=== PATIENT | female | born 1980 | race African-American/Black ===

== ENCOUNTER 2017-05-17 15:14 | Emergency (ER) | payer MEDICAID ==
[~2017-05-17] VITALS: Ht 162.6 cm; Wt 86.1 kg
[2017-05-17 15:19] VITALS: BP 120/77; PULSE 98; RESP 16; TEMP 98; O2SAT 97
[2017-05-17] MEDS ORDERED: NEUR800T PO (16:27)
[2017-05-17] MEDS ORDERED: OXYC1TAB63 PO (16:27)
--- NOTE | 2017-05-17 16:48 | PD ---
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 Patient reports that she had a tummy tuck performed in the [place] 1 month ago and suffered a complication of a seroma. She had this seroma drained the past Tuesday and had a JOSE drain placed to remove any residual fluid. Patient reports that she had a CT of her abdomen and pelvis performed after the JOSE was placed which showed resolution of the seroma. Patient reports that her doctor wanted her to keep the JOSE drain in place to remove any residual fluids. Patient reports that since last week, she has had less than 50 cc of fluid drained from her JOSE drain per day. Patient reports that she is here visiting for the holidays and wanted to make sure that her JOSE drain wasn't clogged. Patient denies any fevers or chills, she denies any abdominal pain. Patient denies any nausea or vomiting. Patient reports no other complications. Patient here for JOSE drain evaluation. PFSH Past Medical History Medical other: Yes (AVN) Respiratory: Yes (asthma) ?: Not LMP: 04/17/17 Past Surgical History Other Surgery: Yes (CYST REMOVED FROM ABD) Social History Alcohol Use: No Tobacco Use: Yes Substance Use: No Allergies-Medications (Allergen,Severity, Reaction): Coded Allergies: No Known Allergies (Unverified , 05/17/17) Reported Meds & Prescriptions Reported Meds & Active Scripts Active Reported Oxycodone-Acetaminophen 5-325 mg Tab 1 Tab PO Q4H PRN Neurontin (Gabapentin) 800 Mg Tab 1,600 Mg PO TID Review of Systems General / Constitutional: No: Fever Eyes: No: Visual changes HENT: No: Headaches Cardiovascular: No: Chest Pain or Discomfort Respiratory: No: Shortness of Breath Gastrointestinal: No: Abdominal Pain Genitourinary: No: Dysuria Musculoskeletal: No: Pain Skin: No Rash Neurologic: No: Weakness Psychiatric: No: Depression Endocrine: No: Polydipsia Hematologic/Lymphatic: No: Easy Bruising Physical Exam Narrative GENERAL: NAD SKIN: Focused skin assessment warm/dry. HEAD: Atraumatic. Normocephalic. EYES: Pupils equal and round. No scleral icterus. No injection or drainage. ENT: No nasal bleeding or discharge. Mucous membranes pink and moist. NECK: Trachea midline. No JVD. CARDIOVASCULAR: Regular rate and rhythm. No murmur appreciated. RESPIRATORY: No accessory muscle use. Clear to auscultation. Breath sounds equal bilaterally. GASTROINTESTINAL: Abdomen soft, non-tender, nondistended. Hepatic and splenic margins not palpable. Patient with serosanguineous fluid in JOSE drain, there are no clots, no signs of infection, abdomen is soft, nontender, no signs of infection. MUSCULOSKELETAL: No obvious deformities. No clubbing. No cyanosis. No edema. NEUROLOGICAL: Awake and alert. No obvious cranial nerve deficits. Motor grossly within normal limits. Normal speech. PSYCHIATRIC: Appropriate mood and affect; insight and judgment normal. Data Data Last Documented VS Vital Signs Date Time Temp Pulse Resp B/P (MAP) Pulse Ox O2 Delivery O2 Flow Rate FiO2 05/17/17 15:19 98.0 98 16 120/77 (91) 97 [facility] Medical Decision Making Medical Screen Exam Complete: Yes Emergency Medical Condition: Yes Medical Record Reviewed: Yes Interpretation(s) Vital Signs Date Time Temp Pulse Resp B/P (MAP) Pulse Ox O2 Delivery O2 Flow Rate FiO2 05/17/17 15:19 98.0 98 16 120/77 (91) 97 Differential Diagnosis JOSE Drain malfunction Narrative Course 36-year-old female who presents to emergency room with possible JOSE drain malfunction. Patient did have a seroma status post tummy tuck one month ago. She had this certainly drained last week on Tuesday and had a JOSE tube placed to remove residual fluids. Patient reports that over the past week, she has had less drainage from her JOSE tube and wanted to make sure everything was okay. JOSE tube shows serosanguineous fluid with no signs of infection. Abdomen is soft, nontender, nondistended, no peritoneal signs. Patient with most likely completion of drainage of seroma. I discussed possibilities of the CT scan of her abdomen to evaluate if seroma is still present which patient refuses at this time. Patient reports that she'll follow-up with her primary care doctor, she will return to the emergency room as needed. Signs and symptoms of infection were discussed with patient in detail. Patient understands when to return to the emergency. Diagnosis Primary Impression: Healing wound Patient Instructions: General Instructions Additional Instructions: Please follow up with your primary care doctor for removal of your JOSE drain Return to ER as needed or if symptoms worsen or persist Disposition: 01 DISCHARGE HOME Condition: Stable Chrystal Simpson DO May 17, 2017 16:48
== END 2017-05-17 16:56 | disposition home or self-care (01) ==
LOC: PHED 15:14
DX: Z43.4 Encounter for attention to other artificial openings of digestive tract (principal); J45.909 Unspecified asthma, uncomplicated; Z72.0 Tobacco use
CPT/HCPCS: 99282

== ENCOUNTER 2017-05-20 01:41 | Observation (INO) | payer MEDICAID ==
[~2017-05-20] VITALS: Ht 165.1 cm; Wt 72.0 kg
[~2017-05-20 01:41] MED LIST: NEUR800T PO; OXYC1TAB63 PO
[2017-05-20 01:43] VITALS: BP 136/76; PULSE 105; RESP 16; TEMP 98.9; O2SAT 100
--- NOTE | 2017-05-20 02:16 | PD ---
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 Her JOSE drain has had very little drainage over the last 24 hours of approximately 20 ml. The JOSE drain was placed 2 weeks ago and since the placement she has had less than 25 mL per day. She had a tummy tuck done on in the [facility] and at that time the JOSE drain was placed. On 04/10 the JOSE drain was removed. She return back home to [place] after having the surgery done. The patient reports that the drain was replaced 2 weeks ago in her home state of [place]. She is now currently on vacation in [place]. She reports that she was seen in the emergency department on May 17 for evaluation of her JOSE drain site as she reports that she was told to follow-up in the emergency department in [place]. He was recommended at that time that she have further evaluation done by CT scan, however the patient refused. At that time, she did not have any pain. She presented with concern about the decreased drainage. Review of systems otherwise, the patient denies having any known recent fevers, cough, congestion, neck pain, chest pain, shortness of breath, vomiting, diarrhea, urinary symptoms, or neurologic symptoms. She reports that she has been moving her bowels regularly. She last moved her bowels today. PFSH Past Medical History Narrative Medical The patient's past medical history is significant for asthma, history of avascular necrosis. Respiratory: Yes (asthma) Past Surgical History Narrative Surgical The patient's past surgical history is significant for having a cyst removed from her abdomen, history of abdominoplasty. Other Surgery: Yes (CYST REMOVED FROM ABD) Social History Alcohol Use: No Tobacco Use: Yes Substance Use: No Allergies-Medications (Allergen,Severity, Reaction): Coded Allergies: No Known Allergies (Unverified , 05/20/17) Reported Meds & Prescriptions Reported Meds & Active Scripts Active Reported Oxycodone-Acetaminophen 5-325 mg Tab 1 Tab PO Q4H PRN Neurontin (Gabapentin) 800 Mg Tab 1,600 Mg PO TID Review of Systems Except as stated in HPI: all other systems reviewed are Neg General / Constitutional: No: Fever Eyes: No: Visual changes HENT: No: Headaches Cardiovascular: No: Chest Pain or Discomfort Respiratory: No: Shortness of Breath Gastrointestinal: Positive: Abdominal Pain, No: Nausea, Vomiting, Diarrhea, Changes in Bowel Habits, Loss of Appetite Genitourinary: No: Dysuria Musculoskeletal: No: Pain Skin: No Rash Neurologic: No: Weakness Psychiatric: No: Depression Endocrine: No: Polydipsia Hematologic/Lymphatic: No: Easy Bruising Physical Exam Narrative General: The patient is a well-developed well-nourished female in no acute distress. Head and Neck exam: Head is normocephalic atraumatic. Eyes: EOMI, pupils are equal round and reactive to light. Nose: Midline septum with pink mucous membranes Mouth: Dentition unremarkable. Moist mucus membranes. Posterior oropharynx is not erythematous. No tonsillar hypertrophy. Uvula midline. Airway patent. Neck: No palpable lymphadenopathy. No nuchal rigidity. No thyromegaly. Cardiovascular: Regular rate and rhythm without murmurs, gallops, or rubs. Lungs: Clear to auscultation bilaterally. No wheezes, rhonchi, or rales. Abdomen: Soft, with a JOSE drain in place in the left side of her abdomen that appears to be in good repair with a serous sanguinous drainage noted. She has approximately 20 mL noted in the reservoir. She has no surrounding erythema, edema, or warmth on palpation, however she does have tenderness reported on palpation around the JOSE drain site on the left side of the abdomen. No other tenderness on palpation of the other quadrants of the abdomen. No guarding, rebound, or rigidity. Normal bowel sounds are audible. No tenderness on palpation of McBurney's point. Negative Castro's sign. Extremities: No clubbing, cyanosis, or edema. 2+ pulses in all 4 extremities. No calf tenderness on palpation. Back: No spinous process tenderness to palpation. No costovertebral angle tenderness to palpation. Neurologic Exam: Grossly nonfocal. Skin Exam: No rash noted. Intact skin that is warm and dry. Data Data Last Documented VS Vital Signs Date Time Temp Pulse Resp B/P (MAP) Pulse Ox O2 Delivery O2 Flow Rate FiO2 05/20/17 02:16 Room Air 05/20/17 01:43 98.9 105 16 136/76 (96) 100 Orders Orders Complete Blood Count With Diff (05/20/17 02:26) Comprehensive Metabolic Panel (05/20/17 02:26) C-Reactive Protein (Crp) (05/20/17 02:26) Lipase (05/20/17 02:26) Ct Abd/Pel W Iv Contrast(Rout) (05/20/17 02:26) Iv Access Insert/Monitor (05/20/17 02:26) Ecg Monitoring (05/20/17 02:26) Oximetry (05/20/17 02:26) Ed Urine Pregnancytest Poc (05/20/17 02:26) Sodium Chlor 0.9% 1000 Ml Inj (Ns 1000 M (05/20/17 03:15) Ketorolac Inj (Toradol Inj) (05/20/17 03:15) Iohexol 350 Inj (Omnipaque 350 Inj) (05/20/17 04:15) Piperacil-Tazo 3.375 Gm Premix (Zosyn 3. (05/20/17 04:45) Admit Order (Ed Use Only) (05/20/17 04:54) Labs Laboratory Tests Test 05/20/17 02:41 White Blood Count 12.5 TH/MM3 Red Blood Count 3.37 MIL/MM3 Hemoglobin 9.9 GM/DL Hematocrit 29.3 % Mean Corpuscular Volume 86.8 FL Mean Corpuscular Hemoglobin 29.4 PG Mean Corpuscular Hemoglobin Concent 33.9 % Red Cell Distribution Width 15.7 % Platelet Count 453 TH/MM3 Mean Platelet Volume 6.4 FL Neutrophils (%) (Auto) 58.5 % Lymphocytes (%) (Auto) 26.6 % Monocytes (%) (Auto) 8.5 % Eosinophils (%) (Auto) 5.2 % Basophils (%) (Auto) 1.2 % Neutrophils # (Auto) 7.3 TH/MM3 Lymphocytes # (Auto) 3.3 TH/MM3 Monocytes # (Auto) 1.1 TH/MM3 Eosinophils # (Auto) 0.6 TH/MM3 Basophils # (Auto) 0.2 TH/MM3 CBC Comment DIFF FINAL Differential Comment Blood Urea Nitrogen 13 MG/DL Creatinine 0.54 MG/DL Random Glucose 86 MG/DL Total Protein 6.8 GM/DL Albumin 3.2 GM/DL Calcium Level 8.2 MG/DL Alkaline Phosphatase 68 U/L Aspartate Amino Transf (AST/SGOT) 14 U/L Alanine Aminotransferase (ALT/SGPT) 17 U/L Total Bilirubin 0.2 MG/DL Sodium Level 140 MEQ/L Potassium Level 3.9 MEQ/L Chloride Level 107 MEQ/L Carbon Dioxide Level 22.3 MEQ/L Anion Gap 11 MEQ/L Estimat Glomerular Filtration Rate 155 ML/MIN C-Reactive Protein 2.07 MG/DL Lipase 74 U/L MDM Medical Decision Making Medical Screen Exam Complete: Yes Emergency Medical Condition: Yes Medical Record Reviewed: Yes Interpretation(s) Last Impressions Abdomen/Pelvis CT 05/20/17 0226 Signed Impressions: Service Date/Time: Saturday, May 20, 2017 03:57 - CONCLUSION: 1. Postsurgical findings with lentiform fluid collection along the superficial surface of the anterior abdominal wall musculature. Surgical drain is in place within the fluid collection. Adjacent inflammatory changes seen in the superficial soft tissues. 2. No other acute findings identified in the abdomen and pelvis. Romel Valle MD Differential Diagnosis Recurrent seroma, versus postop infection, versus pain related to JOSE drain migration, versus plugged JOSE drain Narrative Course During the course of the patients emergency department visit, the patients history, examination, and differential diagnosis were reviewed with the patient. The patient was placed on a cardiac care unit nurse with oximetry and frequent blood pressure monitoring. The patient had IV access obtained and blood work sent for analysis. The patient will have CT scan of the abdomen and pelvis done. The patients laboratory studies were reviewed and remarkable for a white count of 12.5, hemoglobin 9.9, platelets 453 with 8.5 monocytes. Given the patient's abdominal pain and elevated white blood cell count, records from the other facility that she was evaluated at had her JOES drain replaced in [place] will be obtained. She reports that she was in [facility] in [place], [place]. CMP is remarkable for a calcium of 8.2, AST 14, C-reactive protein 2.07, lipase 74 Radiology studies were reviewed and remarkable for a CT scan of the abdomen and pelvis that shows post surgical findings with a lentiform fluid collection along the superficial surface of the anterior abdominal wall musculature. Surgical drain is in place within the fluid collection, adjacent inflammatory changes are seen in the soft tissues. No other acute findings in the abdomen and pelvis. Given the patient's new abdominal pain since yesterday, and her elevated white blood cell count with continued fluid collection and inflammatory changes in the abdomen records will be obtained from the facility that recently replaced the JOSE drain in [place]. In the meantime, the patient was given Zosyn 3.375 g IV. The patient will be admitted for observation and consideration of replacement of her JOSE drain by interventional radiology. The patient's case was discussed with Dr. Lee who did agree to admit the patient for continued evaluation and treatment. Unfortunately, after further discussion with the patient, the patient reports that she has the only vehicle for her family and her sister is currently watching her 3 kids. She reports that her sister needs to go to work and no other person can watch her kids, therefore she cannot be admitted. I explained to the patient my concern regarding an infectious process, however the patient reports that she cannot stay. The patient will be signing out AGAINST MEDICAL ADVICE. AMA: The risks of leaving against medical advice without further evaluation treatment were discussed with the patient. These risks include sepsis or related to progressive abdominal wall infection postop. The patient indicated understanding of these risks and appeared to have the capacity to make this decision. Physician Communication Physician Communication The patient's case including history, pertinent physical examination findings, and laboratory studies were discussed with Dr. Lee. It was agreed that the patient would be admitted to the [facility] service. Diagnosis Primary Impression: Abdominal pain Qualified Codes: R10.12 - Left upper quadrant pain Additional Impression: Leukocytosis Qualified Codes: D72.829 - Elevated white blood cell count, unspecified Admitting Information Admitting Physician Requests: Kristine Bell MD May 20, 2017 02:16
[2017-05-20 02:48] LABS: AUTOMATED NEUTROPHIL # 7.3 TH/MM3 (1.8-7.7); BASOPHIL # 0.2 TH/MM3 (0-0.2); BASOPHIL % 1.2 % (0.0-2.0); EOSINOPHIL # 0.6 TH/MM3 (0-0.4); EOSINOPHIL % 5.2 % (0.0-4.0); HEMATOCRIT 29.3 % (35.0-46.0); HEMOGLOBIN 9.9 GM/DL (11.6-15.3); LYMPH % 26.6 % (9.0-44.0); LYMPHOCYTE # 3.3 TH/MM3 (1.0-4.8); MEAN CELL VOLUME 86.8 FL (80.0-100.0); MEAN CORPUSCULAR HEMOGLOBIN 29.4 PG (27.0-34.0); MEAN CORPUSCULAR HGB CONC 33.9 % (32.0-36.0); MEAN PLATELET VOLUME 6.4 FL (7.0-11.0); MONO % 8.5 % (0.0-8.0); MONOCYTE # 1.1 TH/MM3 (0-0.9); NEUT % 58.5 % (16.0-70.0); PLATELET COUNT 453 TH/MM3 (150-450); RED BLOOD COUNT 3.37 MIL/MM3 (4.00-5.30); RED CELL DISTRIBUTION WIDTH 15.7 % (11.6-17.2); WHITE BLOOD COUNT 12.5 TH/MM3 (4.0-11.0)
[2017-05-20] MEDS ORDERED: KETOROLAC TROMETHAMINE 30 MG/ML (IVP) VIAL IV PUSH ONE (03:15)
[2017-05-20] MEDS ORDERED: SODIUM CHLOR 0.9% 1000 ML INJ 1,000 ML IV ONE (03:15)
[2017-05-20 03:37] LABS: ALBUMIN 3.2 GM/DL (3.4-5.0); ALT (GPT) 17 U/L (10-53); AST (GOT) 14 U/L (15-37); BICARBONATE 22.3 MEQ/L (21.0-32.0); BLOOD UREA NITROGEN 13 MG/DL (7-18); C-REACTIVE PROTEIN 2.07 MG/DL (0.00-0.30); CALCIUM 8.2 MG/DL (8.5-10.1); CHLORIDE 107 MEQ/L (98-107); CREATININE 0.54 MG/DL (0.50-1.00); GLOMERULAR FILTRATION RATE 155 ML/MIN (>89); GLUCOSE,RANDOM 86 MG/DL (74-106); LIPASE 74 U/L (73-393); SODIUM (NA) 140 MEQ/L (136-145)
[2017-05-20 03:39] LABS: ALKALINE PHOSPHATASE 68 U/L (45-117); TOTAL BILIRUBIN ADULT 0.2 MG/DL (0.2-1.0); TOTAL PROTEIN 6.8 GM/DL (6.4-8.2)
[2017-05-20] MEDS ORDERED: IOHEXOL 350 MG/ML 10 ML VIAL (for RAD DIAG) IVCONTRAST ONE (04:15)
--- NOTE | 2017-05-20 04:40 | RADRPT ---
EXAM DATE/TIME: 05/20/2017 03:57 [facility] COMPARISON: No previous studies available for comparison. INDICATIONS : Abdominal pain. JOSE drain post adominoplasty. IV CONTRAST: 100 cc Omnipaque 350 (iohexol) IV ORAL CONTRAST: No oral contrast ingested. RADIATION DOSE: 6.64 CTDIvol (mGy) MEDICAL HISTORY : None SURGICAL HISTORY : Abdominoplasty. Bilateral hip replacement. ENCOUNTER: Initial ACUITY: 1 day PAIN SCALE: 0/10 LOCATION: abdomen TECHNIQUE: Volumetric scanning of the abdomen and pelvis was performed. Using automated exposure control and ad justment of the mA and/or kV according to patient size, radiation dose was kept as low as reasonably achievable to obtain optimal diagnostic quality images. DICOM format image data is available electro nically for review and comparison. FINDINGS: LOWER LUNGS: The visualized lower lungs are clear. LIVER: Homogeneous density without lesion. There is no dilation of the biliary tree. No calcified gallston es. SPLEEN: Normal size without lesion. PANCREAS: Within normal limits. KIDNEYS: Normal in size and shape. There is no mass, stone or hydronephrosis. ADRENAL GLANDS: Within normal limits. VASCULAR: There is no aortic aneurysm. BOWEL/MESENTERY: No evidence of bowel dilatation. No free air or free fluid. Appendix within normal limits. ABDOMINAL WALL: Lentiform fluid collection is seen in the anterior abdominal wall with surgical drain in place within the fluid collection. The collection measures 13.1 x 1.7 cm in axial dimensions. Adjacent superficia l soft tissue edema as well as edema in the region of the rectus abdominous muscle. RETROPERITONEUM: There is no lymphadenopathy. BLADDER: No wall thickening or mass. REPRODUCTIVE: Within normal limits. INGUINAL: There is no lymphadenopathy or hernia. MUSCULOSKELETAL: Bilateral total hip prostheses. CONCLUSION: 1. Postsurgical findings with lentiform fluid collection along the superficial surface of the anterio r abdominal wall musculature. Surgical drain is in place within the fluid collection. Adjacent inflam matory changes seen in the superficial soft tissues. 2. No other acute findings identified in the abdomen and pelvis. Romel Valle MD on May 20, 2017 at 4:31 Board Certified Radiologist. This report was verified electronically.
[2017-05-20] MEDS ORDERED: PIPERACIL-TAZO 3.375 GM PREMIX 50 ML IV ONE (04:45)
[2017-05-20] MEDS ORDERED: SODIUM CHLOR 0.9% 1000 ML INJ 1,000 ML IV SCH (04:59)
[2017-05-20] MEDS ORDERED: SODIUM CHLORIDE 0.9% FLUSH 10 ML FLUSH IV FLUSH PRN (05:00)
[2017-05-20] MEDS ORDERED: SENNOSIDES 8.6 MG TAB PO PRN (05:00)
[2017-05-20] MEDS ORDERED: MORPHINE SULFATE 2 MG/ML INJ IV PUSH PRN (05:00)
[2017-05-20] MEDS ORDERED: MAGNESIUM HYDROXIDE SUSP 30 ML CUP PO PRN (05:00)
[2017-05-20] MEDS ORDERED: BISACODYL 10 MG SUPP RECTAL PRN (05:00)
[2017-05-20] MEDS ORDERED: ACETAMINOPHEN/HYDROcodone 325 MG/5 MG TAB PO PRN (05:00)
[2017-05-20] MEDS ORDERED: ACETAMINOPHEN 325 MG TAB PO PRN (05:00)
[2017-05-20] MEDS ORDERED: LACTULOSE SYRUP 20 GM/30 ML CUP PO PRN (05:00)
[2017-05-20] MEDS ORDERED: ONDANSETRON HCL 4 MG/2 ML VIAL IVP PRN (05:00)
--- NOTE | 2017-05-20 05:21 | HHI.HP ---
HPI Service [facility] Primary Care Physician Unknown Admission Diagnosis Abdominal pain, leukocytosis, h/o abdominoplasty with JOSE drain Diagnoses: (1) Malfunction of device Diagnosis: Principal (2) Leukocytosis Diagnosis: Principal (3) Abdominal pain Diagnosis: Principal Travel History International Travel<30 Days: No Contact w/Intl Traveler <30 Da: No Traveled to Known Affected Are: No History of Present Illness This is a 36-year-old female with a PMH of Asthma and Avascular Necrosis s/p Bilateral Hip Prosthesis who presented to the ER w/ complaints of abdominal pain. Reports symptoms began approx 2wks ago, now progressively worse. Pain is constant, pressure like, 01/30. Recent abdominoplasty in [facility] on 04/01/17, states JOSE drain placed at that time and later removed on 04/10/17. She went back home to [place] following surgery and developed abdominal pain, seen in ER in [place] and told she had seroma, JOSE Drain replaced. Currently in [place] on vacation, now w/ worsening abdominal pain and suspected JOSE Drain malfunction as only w/ 20cc output. Denies nausea, vomiting or diarrhea. No fever, chills. On arrival, BP 120/77, HR 98, O2 sat 97% on RA, Afebrile. WBC 12.5. Chemistry essentially unremarkable. CT Abd/Pelvis w/ postsurgical findings with lentiform fluid collection along the superficial surface of the anterior abdominal wall musculature, surgical drain is in place within the fluid collection, adjacent inflammatory changes. S/p Zosyn in ER. Review of Systems Except as stated in HPI: all other systems reviewed are Neg ROS: 14 point review of systems otherwise negative. Past Family Social History Past Medical History PMH: Asthma and Avascular Necrosis s/p Bilateral Hip Prosthesis Past Surgical History PAST SURGICAL HISTORY: Abdominoplasty, Bilateral Hip Prosthesis Allergies: Coded Allergies: No Known Allergies (Unverified , 05/20/17) Family History PAST FAMILY HISTORY: Reviewed. No h/o DM or CAD Social History PAST SOCIAL HISTORY: Negative for alcohol or drugs. Positive for tobacco. Physical Exam Vital Signs Vital Signs Date Time Temp Pulse Resp B/P (MAP) Pulse Ox O2 Delivery O2 Flow Rate FiO2 05/20/17 02:16 Room Air 05/20/17 01:43 98.9 105 16 136/76 (96) 100 Room Air Physical Exam PE: GENERAL: Young female in no acute distress. HEENT: PERRLA, EOMI. No scleral icterus or conjunctival pallor. No lid lag or facial droop. CARDIOVASCULAR: Regular rate and rhythm. No obvious murmurs to auscultation. No chest tenderness to palpation. RESPIRATORY: No obvious rhonchi or wheezing. Clear to auscultation. Breath sounds equal bilaterally. GASTROINTESTINAL: Abdomen soft, non-tender, nondistended. BS normal. JOSE Drain in place, no significant erythema/edema, mild tenderness to palpation MUSCULOSKELETAL: Extremities without clubbing, cyanosis, or edema. No obvious deformities. NEUROLOGICAL: Awake, alert and oriented x4. No focal neurologic deficits. Moving both upper and lower extremities spontaneously. Laboratory Laboratory Tests Test 05/20/17 02:41 White Blood Count 12.5 Red Blood Count 3.37 Hemoglobin 9.9 Hematocrit 29.3 Mean Corpuscular Volume 86.8 Mean Corpuscular Hemoglobin 29.4 Mean Corpuscular Hemoglobin Concent 33.9 Red Cell Distribution Width 15.7 Platelet Count 453 Mean Platelet Volume 6.4 Neutrophils (%) (Auto) 58.5 Lymphocytes (%) (Auto) 26.6 Monocytes (%) (Auto) 8.5 Eosinophils (%) (Auto) 5.2 Basophils (%) (Auto) 1.2 Neutrophils # (Auto) 7.3 Lymphocytes # (Auto) 3.3 Monocytes # (Auto) 1.1 Eosinophils # (Auto) 0.6 Basophils # (Auto) 0.2 CBC Comment DIFF FINAL Differential Comment Blood Urea Nitrogen 13 Creatinine 0.54 Random Glucose 86 Total Protein 6.8 Albumin 3.2 Calcium Level 8.2 Alkaline Phosphatase 68 Aspartate Amino Transf (AST/SGOT) 14 Alanine Aminotransferase (ALT/SGPT) 17 Total Bilirubin 0.2 Sodium Level 140 Potassium Level 3.9 Chloride Level 107 Carbon Dioxide Level 22.3 Anion Gap 11 Estimat Glomerular Filtration Rate 155 C-Reactive Protein 2.07 Lipase 74 Result Diagram: 05/20/1724005/20/17240 Caprini VTE Risk Assessment Caprini VTE Risk Assessment: No/Low Risk (score <= 1) Caprini Risk Assessment Model Point Value = 1 Point Value = 2 Point Value = 3 Point Value = 5 Age 41-60 Minor surgery BMI > 25 kg/m2 Swollen legs Varicose veins or History of unexplained or recurrent spontaneous Oral contraceptives or hormone replacement Sepsis (< 1 month) Serious lung disease, including pneumonia (< 1 month) Abnormal pulmonary function Acute myocardial infarction Congestive heart failure (< 1 month) History of inflammatory bowel disease Medical patient at bed rest Age 61-74 Arthroscopic surgery Major open surgery (> 45 min) Laparoscopic surgery (> 45 min) Malignancy Confined to bed (> 72 hours) Immobilizing plaster cast Central venous access Age >= 75 History of VTE Family history of VTE Factor V Leiden Prothrombin [id number] Lupus anticoagulant Anticardiolipin antibodies Elevated serum homocysteine Heparin-induced thrombocytopenia Other congenital or acquired thrombophilia Stroke (< 1 month) Elective arthroplasty Hip, pelvis, or leg fracture Acute spinal cord injury (< 1 month) Prophylaxis Regimen Total Risk Factor Score Risk Level Prophylaxis Regimen 0-1 Low Early ambulation 2 Moderate Order ONE of the following: *Sequential Compression Device (SCD) *Heparin 5000 units SQ BID 3-4 Higher Order ONE of the following medications: *Heparin 5000 units SQ TID *Enoxaparin/Lovenox 40 mg SQ daily (WT < 150 kg, CrCl > 30 mL/min) *Enoxaparin/Lovenox 30 mg SQ daily (WT < 150 kg, CrCl > 10-29 mL/min) *Enoxaparin/Lovenox 30 mg SQ BID (WT < 150 kg, CrCl > 30 mL/min) AND/OR *Sequential Compression Device (SCD) 5 or more Highest Order ONE of the following medications: *Heparin 5000 units SQ TID (Preferred with Epidurals) *Enoxaparin/Lovenox 40 mg SQ daily (WT < 150 kg, CrCl > 30 mL/min) *Enoxaparin/Lovenox 30 mg SQ daily (WT < 150 kg, CrCl > 10-29 mL/min) *Enoxaparin/Lovenox 30 mg SQ BID (WT < 150 kg, CrCl > 30 mL/min) AND *Sequential Compression Device (SCD) Assessment and Plan Problem List: (1) Malfunction of device ICD Code: T85.618A - Breakdown (mechanical) of other specified internal prosthetic devices, implants and grafts, initial encounter (2) Leukocytosis ICD Code: D72.829 - Elevated white blood cell count, unspecified (3) Abdominal pain ICD Code: R10.9 - Unspecified abdominal pain Assessment and Plan A/P: 1. JOSE Drain Malfunction: s/p Abdominoplasty in [facility] 04/01/17, JOSE Drain removed 04/10/17, returned to [place], developed Seroma, JOSE Drain reinserted, now w/ abdominal pain/distention. CT Abd/Pelvis w/ large 13.1cm seroma, JOSE Drain in place however no significant drainage noted. Consult IR for eval of malfunctioning JOSE Drain. Needs follow up w/ her PCP/Surgeon. 2. Leukocytosis: WBC 12.5. Afebrile. Concern for possible post-op wound infection. S/p Zosyn in ER. Continue IV Abx, repeat labs. 3. Abdominal Pain: secondary to above. Analgesics/antiemetics as needed. 4. DVT Prophylaxis: SCD/Teds. 5. Social work for d/c planning as needed. 6. Case discussed w/ ER physician at length. Shandra Lee MD May 20, 2017 05:21
[2017-05-20] MEDS ORDERED: OXYC1TAB36 PO (07:23)
[2017-05-20] MEDS ORDERED: CLIN150C14 PO (08:05)
[2017-05-20] MEDS ORDERED: DOCUSATE SODIUM 50 MG/SENNA 8.6 MG TAB PO SCH (09:00)
[2017-05-20] MEDS ORDERED: SODIUM CHLORIDE 0.9% FLUSH 10 ML FLUSH IV FLUSH SCH (09:00)
[2017-05-20] MEDS ORDERED: PIPERACIL-TAZO 4.5 GM PREMIX 100 ML IV SCH (10:00)
== END 2017-05-20 06:12 | disposition left against medical advice (07) ==
LOC: NEPE 01:41 → NEDA 05:00
PROVIDERS: ADMIT Hospitalist; ATTEND Hospitalist
DX: T85.618A Breakdown (mechanical) of other specified internal prosthetic devices, implants and grafts, initial encounter (principal); R10.12 Left upper quadrant pain; D72.829 Elevated white blood cell count, unspecified; J45.909 Unspecified asthma, uncomplicated; Z72.0 Tobacco use; Z96.643 Presence of artificial hip joint, bilateral
CPT/HCPCS: 74177; 80053; 83690; 84702; 84703; 85025; 86140; 96361; 96365; 96375; 96376; 99285; G0378; J1885; J2543; J7030; Q9967

== ENCOUNTER 2017-05-20 07:04 | Emergency (ER) | payer MEDICAID ==
[~2017-05-20] VITALS: Ht 162.6 cm; Wt 85.0 kg
[2017-05-20 07:05] VITALS: BP 120/76; PULSE 106; RESP 20; TEMP 99.6; O2SAT 97
[2017-05-20] MEDS ORDERED: OXYC1TAB36 PO (07:23)
--- NOTE | 2017-05-20 07:48 | PD ---
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 The patient underwent abdominoplasty with removal of abdominal wall cyst which was done in the [place] 6 weeks prior. She reports interval drain obstruction with placement of a draining 2 weeks prior. The drain had been collecting serosanguineous fluid daily until the past couple days when drainage stopped completely. The patient was seen and evaluated here. A CT scan revealed a 13 cm x 1.7 cm lentiform fluid collection in the anterior abdominal wall. Patient was going to be admitted however left the hospital or to attend to her 3 children. She is visiting here from [place]. Today she denies severe pain in the abdominal wall. There had been discussion about interventional radiology replacement per hospitalist note. PFSH Past Medical History Asthma: Yes Diminished Hearing: No Respiratory: Yes (asthma) Tetanus Vaccination: < 5 Years Influenza Vaccination: No ?: Not Past Surgical History Other Surgery: Yes (CYST REMOVED FROM ABD, TUMROBERTA TU) Social History Alcohol Use: No Tobacco Use: Yes (1/2 PPD) Substance Use: No Allergies-Medications (Allergen,Severity, Reaction): Coded Allergies: No Known Allergies (Unverified , 05/20/17) Reported Meds & Prescriptions Reported Meds & Active Scripts Active Clindamycin (Clindamycin HCl) 150 Mg Cap 450 Mg PO Q8HR 10 Days Reported Oxycodone-Acetaminophen 10-325 mg Tab 1 Tab PO Q4H PRN Neurontin (Gabapentin) 800 Mg Tab 1,600 Mg PO TID Review of Systems Except as stated in HPI: all other systems reviewed are Neg General / Constitutional: No: Fever Cardiovascular: No: Chest Pain or Discomfort Physical Exam Narrative GENERAL: 36-year-old female pleasant well-nourished well-developed SKIN: Warm and dry. HEAD: Atraumatic. Normocephalic. EYES: Pupils equal and round. No scleral icterus. No injection or drainage. ENT: No nasal bleeding or discharge. Mucous membranes pink and moist. NECK: Trachea midline. No JVD. CARDIOVASCULAR: Regular rate and rhythm. RESPIRATORY: No accessory muscle use. Clear to auscultation. Breath sounds equal bilaterally. GASTROINTESTINAL: Abdominal is soft with no focus of tenderness. The site of the JOSE drain insertion is clean dry and intact. There is about 2 cm of clear serosanguineous fluid in the JOSE drain bulb. MUSCULOSKELETAL: Extremities without clubbing, cyanosis, or edema. No obvious deformities. NEUROLOGICAL: Awake and alert. No obvious cranial nerve deficits. Motor grossly within normal limits. Five out of 5 muscle strength in the arms and legs. Normal speech. PSYCHIATRIC: Appropriate mood and affect; insight and judgment normal. Data Data Last Documented VS Vital Signs Date Time Temp Pulse Resp B/P (MAP) Pulse Ox O2 Delivery O2 Flow Rate FiO2 05/20/17 08:48 05/20/17 07:19 18 99 Room Air 05/20/17 07:05 99.6 106 vital signs reviewed Orders Orders Ed Discharge Order (05/20/17 08:06) Clindamycin (Cleocin) (05/20/17 08:15) MDM Medical Decision Making Medical Screen Exam Complete: Yes Emergency Medical Condition: Yes Medical Record Reviewed: Yes Differential Diagnosis Cellulitis, abscess, seroma, perforation of abdominal wall Narrative Course At the bedside a 20 cc syringe was attached to the JOSE drain and approximately 70 cc of serosanguineous fluid was drained. The bulb was reattached and within about 5-10 minutes about 20 cc of serosanguineous fluid was collected. The white count 12.5 from yesterday and there could be a very early and very mild deep tissue infection. The patient has no tachycardia and no fever. The abdomen is nontender to my exam and said JOSE drain insertion is clean dry and intact. Drainage was serosanguineous is no purulent component. It is considered most reasonable to administer a clindamycin with strict return precautions. The patient is agreeable with plan. Diagnosis Primary Impression: Malfunction of device Qualified Codes: T85.618S - Breakdown (mechanical) of other specified internal prosthetic devices, implants and grafts, sequela Med/Other Pt SpecificInfo: Prescription(s) given Scripts Clindamycin (Clindamycin) 150 Mg Cap 450 MG PO Q8HR for Infection for 10 Days, CAP 0 Refills Prov: Manny Villela MD 05/20/17 Disposition: 01 DISCHARGE HOME Condition: Stable Manny Villela MD May 20, 2017 07:48
[2017-05-20] MEDS ORDERED: CLIN150C14 PO (08:05)
[2017-05-20] MEDS ORDERED: CLINDAMYCIN 150 MG CAP PO ONE (08:15)
== END 2017-05-20 08:53 | disposition home or self-care (01) ==
LOC: NEPC 07:04
DX: T85.618A Breakdown (mechanical) of other specified internal prosthetic devices, implants and grafts, initial encounter (principal); J45.909 Unspecified asthma, uncomplicated; F17.200 Nicotine dependence, unspecified, uncomplicated
CPT/HCPCS: 99283